=== PATIENT | male | born 1945 | race Two or more races ===

== ENCOUNTER 2020-06-21 14:56 | Emergency (ER) | payer MEDICARE ==
[~2020-06-21] VITALS: Ht 167.6 cm; Wt 72.6 kg
--- NOTE | 2020-06-21 15:15 | NUR ---
ED Nurse Note: Pt came in to ED as being reffered by Dr. Escobar to get Bamlanivimab. Pts AOx4, calm and cooperative to care, VSS, satting at 98% on 2LPM via NC, afebrile on triage. Pt's COVID positive; denies any other complains as of now. will continue to monitor.
--- NOTE | 2020-06-21 15:25 | NUR ---
ED Nurse Note: pt placed on OB.
[2020-06-21 15:46] VITALS: BP 111/65
[2020-06-21] MEDS ORDERED: Bamlanivimab 700 MG in NS 275 ML IVPB SCH (16:15)
[2020-06-21] MEDS ORDERED: Bamlanivimab Fact Sheet MISC ONE (16:15)
--- NOTE | 2020-06-21 16:21 | Emergency Room Report ---
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 COVID-19 Screening: Positive COVID-19 COVID-19 Testing Source: ORAL Patient History Past Medical History: see triage record Reviewed Nursing Documentation: PMH: Agreed; PSxH: Agreed Nursing Documentation-PMH Past Medical History: No History, Except For Review of Systems All Other Systems: negative except mentioned in HPI Physical Exam Vital Signs Date Time Temp Pulse Resp B/P (MAP) Pulse Ox O2 Delivery O2 Flow Rate FiO2 06/21/20 15:10 98.4 67 19 111/65 (80) 98 Nasal Cannula 2.0 Sp02 EP Interpretation: reviewed, abnormal - hypoxic General Appearance: well appearing, no apparent distress, alert Head: normocephalic, atraumatic Eyes: bilateral eye PERRL, bilateral eye EOMI ENT: uvula midline, moist mucus membranes Neck: supple, thyroid normal, supple/symm/no masses Respiratory: lungs clear, no respiratory distress, no retraction, no accessory muscle use Cardiovascular #1: normal peripheral pulses, regular rate, rhythm, no edema, no gallop, no murmur Gastrointestinal: non tender, soft, no guarding, no rebound Musculoskeletal: normal inspection Neurologic: alert, oriented x3 Psychiatric: mood/affect normal Skin: no rash, warm/dry Medical Decision Making Diagnostic Impression: Primary Impression: COVID-19 ER Course 74-year-old male on oxygen therapy status post bamlanivimab. Patient felt better Disposition home w/ return precautions Last Vital Signs Date Time Temp Pulse Resp B/P (MAP) Pulse Ox O2 Delivery O2 Flow Rate FiO2 06/21/20 15:46 67 19 Nasal Cannula 2.0 06/21/20 15:46 98.4 111/65 98 Disposition: HOME, SELF-CARE Condition: Stable Referrals: [facility] Patient Instructions: Upper Respiratory Infection, Adult, [id number] Additional Instructions: The patient was provided with discharge instructions, notified to follow-up with a primary care doctor and or specialist in the next 24-48 hours, and to return to the ED if they have worsening of their symptoms. Please note that this report is being documented using DRAGON technology. This can lead to erroneous entry secondary to incorrect interpretation by the dictating instrument. Chaz Gan MD Jun 21, 2020 16:21
[2020-06-21 19:15] VITALS: BP 120/74
--- NOTE | 2020-06-21 19:15 | NUR ---
ER DISCHARGE NOTE: Patient is cleared to be discharged per ERMD, pt is aox4, on room air, with stable vital signs. pt was given dc and prescription instructions, pt was able to verbalize understanding, pt id band and iv site removed without complications. pt is able to ambulate with steady gait. pt took all belongings.
== END 2020-06-21 19:15 | disposition home or self-care (01) ==
LOC: EMR 16:22
DX: U07.1 COVID-19 (principal)
CPT/HCPCS: 96365; 99284; J7050; Q0239